=== PATIENT | female | born 1955 | race Caucasian/White ===

== ENCOUNTER 2019-03-18 01:10 | Outpatient (CLI) | payer OTHER, SELFPAY ==
--- NOTE | 2019-03-18 06:20 | DI.RAD_ITS ---
SYMPTOM/DIAGNOSIS: ELBOW DEFORMITY, M21.929 RIGHT ELBOW: Three views. No bone or joint abnormality is identified. The soft tissues are unremarkable. If there is concern for internal derangement, an MRI may be considered for further evaluation. IMPRESSION: Negative right elbow.
--- NOTE | 2019-03-18 15:30 | DI.MAMMO_ITS ---
SYMPTOM/DIAGNOSIS: SCREENING, Z12.31 MAMMOGRAMS: Mammograms were interpreted according to the usual protocol including computer analysis with CAD system, tomosynthesis and C view imaging. Comparison is made with prior examinations. Breast density, Category B. No suspicious masses or microcalcifications are seen. There is no definite evidence of malignancy. IMPRESSION: Negative mammogram. Routine screening is recommended. Category 1. MQSA ASSESSMENT OF FINDINGS: Negative. Category 1. Patient will receive a letter notifying them of these results. BI-RADS category B. There are scattered areas of fibroglandular density.
== END 2019-03-18 01:30 ==
PROVIDERS: PCP Family Medicine; Visit Provider Family Medicine
DX: M21.921 Unspecified acquired deformity of right upper arm (principal); Z12.31 Encounter for screening mammogram for malignant neoplasm of breast
CPT/HCPCS: 77063; 77067; 73080

== ENCOUNTER 2020-09-29 16:21 | Outpatient (REF) | payer OTHER, SELFPAY ==
--- NOTE | 2020-09-29 15:30 | PAPFT_PTH ---
PATIENT: Sonia Bolanos LOC: [facility] U#:[id number] AGE/SX: 64/F ROOM: RE09/29/[address]: Helen Garces MD, DC : 1955 BED: DIS: 09/29/2020 SPEC #: [id number] RECD: 09/30/20 12:52 STATUS: IRINEO REQ #: [id number] BLANCA: 09/29/20 15:[address]: Helen Garces DEPT: [facility] Cytology RECD BY: Parisa Mosley Tissues: 1 - CX/ENDOCX FOR PAP SMEARS Procedures: PAP THIN PREP/UVM Screening HPV DNA PROBE Comments: [id number] ([facility])
== END 2020-09-29 16:41 ==
LOC: LBN 16:21
PROVIDERS: PCP Family Medicine; Visit Provider Family Medicine
DX: Z87.42 Personal history of other diseases of the female genital tract (principal); Z12.4 Encounter for screening for malignant neoplasm of cervix; Z11.51 Encounter for screening for human papillomavirus (HPV)
CPT/HCPCS: 88142; 87624

== ENCOUNTER 2020-11-03 00:08 | Outpatient (CLI) | payer OTHER, SELFPAY ==
--- NOTE | 2020-11-03 07:00 | DI.US_ITS ---
EXAM: US PELVIS TRANSVAGINAL CLINICAL HISTORY: CERVICAL POLYP,N84.1,MYASTHENIA GRAVIS,. TECHNIQUE: Transabdominal and transvaginal pelvic ultrasound was performed using standard protocol. COMPARISON: US PELVIS TRANSVAG from 09/13/2017 FINDINGS: KIDNEYS: Kidneys are symmetric in size. No evidence of renal calculi. No evidence of hydronephrosis. No renal mass or cyst identified. UTERUS: Position: Anteverted. Size: 9.8 long by 3.8 AP by 6.5 transverse cm Endometrium: 0.4 cm. Normal for patient's menstrual status. Myometrium: Several hypoechoic masses which have a myometrial location sonographically. The largest is in the fundus and measures 2.6 x 3.9 x 3.8 cm. Cervix: Sonographically unremarkable. No definite evidence of a cervical mass. OVARIES: Right: 3.8 x 3 x 2.7 cm Cyst or mass: 3.8 cm simple cyst. Left: 4.6 x 4.1 x 4.2 cm Cyst or mass: 4.6 cm simple cyst. DOPPLER: Color: Symmetric and uniform flow to both ovaries. No hyperemia. CUL-DE-SAC: Free fluid: None. Other: None. IMPRESSION: 1. Normal sonographic appearance of the kidneys. 2. Enlarged fibroid uterus. No definite evidence of a cervical mass sonographically. 3. Bilateral simple ovarian cysts. The largest is on the left ovary and measures 4.6 cm. The cysts have shown interval increase in size compared to the pelvic ultrasound from 09/13/2017 in this postmen opausal patient. Gynecologic consult is recommended. DATA REPOSITORY:
--- NOTE | 2020-11-03 07:00 | DI.MAMMO_ITS ---
EXAM: MG MAMMO SCREENING CLINICAL HISTORY: screening,Z12.39,ENCOUNTER FOR GENERAL MEDICAL EXAM,Z00.00 TECHNIQUE: Bilateral full field digital CC and MLO mammographic images were obtained with 3D tomosyn thesis and utilizing computer aided detection (CAD). COMPARISON: Available for comparison. FINDINGS: Masses/Architectural Distortion: None seen. Microcalcifications: No suspicious pleomorphic-type are seen. Skin Thickening/Nipple Retraction: None. IMPRESSION: 1. No significant interval change with no specific features of malignancy noted. 2. Unless there is more urgent need, screening mammography is recommended, as per [employer] [place] [employer] guidelines. BI-RADS Category 1 - Negative Breast Density - Category B - Scattered areas of fibroglandular density Breast density category C or D implies that the patient has dense breast tissue. Dense breast tissue is very common and is not abnormal but dense breast tissue can make it harder to find cancer on a ma mmogram. Also, dense breast tissue may increase their breast cancer risk. This information about the result of the mammogram report was provided to the patient to raise their awareness. Use this report when you speak with the patient about their risks for breast cancer, which includes their family hist ory. At that time, you may recommend for more screening tests (Ultrasound or MRI) as they might be us eful based on their risk. A negative radiographic report should not delay biopsy if a dominant or clinically suspicious mass is present. Up to ten percent of cancers are not identified on mammography. A negative report may reinforce clinical impression. Adenosis and dense breasts may obscure an underlying neoplasm. False positive reports average 6 to 10%. Patient will receive a letter notifying them of these results.
== END 2020-11-03 00:28 ==
PROVIDERS: PCP Family Medicine; Visit Provider Family Medicine
DX: Z12.31 Encounter for screening mammogram for malignant neoplasm of breast (principal); Z00.00 Encounter for general adult medical examination without abnormal findings; N83.292 Other ovarian cyst, left side; N83.291 Other ovarian cyst, right side; D25.9 Leiomyoma of uterus, unspecified; N84.1 Polyp of cervix uteri; G70.00 Myasthenia gravis without (acute) exacerbation
CPT/HCPCS: 77063; 77067; 76830; 76856

== ENCOUNTER 2020-11-03 01:58 | Outpatient (CLI) | payer OTHER, SELFPAY ==
[2020-11-03 08:46] LABS: ALT 26 U/L (14-59); AST 19 U/L (15-37); Albumin 3.7 g/dL (3.4-5.0); Alkaline Phosphatase 98 U/L (46-116); Anion Gap 8.2 mmol/L (3-11); BUN 15 mg/dL (7-18); Bilirubin, Total 0.2 mg/dL (0.2-1.0); CO2 28.8 mmol/L (21.0-32.0); CREATININE 0.88 mg/dL (0.55-1.02); Calcium 8.7 mg/dL (8.5-10.1); Calculated LDL 139 mg/dL (<100); Chloride 103 mmol/L (98-107); Cholesterol 232 mg/dL (<200); Glucose 89 mg/dL (74-106); HDL Cholesterol 68 mg/dL (40-60); Sodium 140 mmol/L (136-145); TSH (W/Ref FT4) 1.88 uIU/mL (0.36-3.74); Total Protein 7.8 g/dL (6.4-8.2); Triglyceride 127 mg/dL (<150)
== END 2020-11-03 02:18 ==
PROVIDERS: PCP Family Medicine; Visit Provider Family Medicine
DX: Z00.00 Encounter for general adult medical examination without abnormal findings (principal); E55.9 Vitamin D deficiency, unspecified; E78.89 Other lipoprotein metabolism disorders; Z95.0 Presence of cardiac pacemaker
CPT/HCPCS: 36415; 80053; 80061; 82306; 84443

== ENCOUNTER 2020-11-24 15:45 | Outpatient (CLI) | payer OTHER, SELFPAY ==
[2020-11-25 17:40] LABS: CEA <0.5 ng/mL (See Note)
[2020-11-26 09:49] LABS: CA 125 <3 U/mL (<30)
[2020-11-28 10:17] LABS: CA 19-9 11 U/mL (<35)
== END 2020-11-24 16:05 ==
PROVIDERS: PCP Family Medicine; Visit Provider Obstetrics & Gynecology
DX: N83.8 Other noninflammatory disorders of ovary, fallopian tube and broad ligament (principal)
CPT/HCPCS: 36415; 86304; 82378; 86301

== ENCOUNTER 2021-02-19 02:39 | Emergency (ER) | payer OTHER, SELFPAY ==
--- NOTE | 2021-02-19 02:45 | W.ED.GENAD ---
Discharge Plan Disposition Patient Disposition: HOME Condition: Good Discharge Details Clinical Impression: Left ureteral calculus, Renal colic on left side Primary Care Provider: Helen Garces ED Provider: Antonio Durant Home Meds and New Rx's Prescriptions: Continued cholecalciferol (vitamin D3) 50 mcg (2,000 unit) capsule 50 mcg PO DAILY RF: 0 pyridostigmine bromide [Mestinon Timespan] 180 mg tablet extended release 180 mg PO BID Qty: 180 RF: 12 Discharge Instructions Instructions: Hydrocodone/Acetaminophen (By mouth), Renal Colic (ED) Additional Instructions: As we discussed you have a 3 mm stone which should be able to pass on its own. Strain your urine so you know when stone has passed. Try alternating ibuprofen with acetaminophen for pain control but if necessary you may take the hydrocodone with acetaminophen. May follow-up with primary care but will refer to urology in case symptoms persist and stone does not pass on its own. Return to ED if you develop fever, uncontrolled pain, uncontrolled vomiting. Referrals: Hansel Mg MD [[facility] STAFF PHYSICIAN] - Helen Garces [place], [place] [Primary Care Provider] - Medical Decision Making Patient presenting with left flank pain and developed hematuria since being in the ED. No previous history of kidney stone but given presentation this is most likely diagnosis. IV established and fluid, ondansetron, ketorolac ordered. Laboratory studies sent. CT scan ordered. Patient with relief of symptoms with IV medications. White count is normal. Kidney function is normal. Urinalysis with blood but negative nitrites and leukocytes. Culture pending. CT scan shows a 3 mm proximal ureteral stone with mild dilatation proximally. Also noted to have large left ovarian cyst which patient is aware of. Discussed stone size and likelihood of passage on its own. Pain starting to return so we will give oral Tylenol here. Patient is driving so will provide [place] to go pack in case need further pain control once home. Would prefer patient to alternate ibuprofen with acetaminophen and use [place] only if necessary. Did discuss use of narcotic medication. Given the small size of the stone elected not to use Flomax. Will have patient strain her urine. May follow-up with primary care but will refer to urology in case there are problems with nonpassage. Patient to return to ED for fever, uncontrolled pain, uncontrolled vomiting. Lab Data Lab results reviewed: Yes I reviewed the patient's lab results. HPI General Mode of arrival: ambulatory. Date/Time Provider Initiated Documentation: 02/19/21 02:45. Limitations to Documentation: no limitations. Information obtained by: patient, RN notes reviewed and old records reviewed. HPI Narrative: Patient presents to the ED with left flank pain. Patient first noticed pain yesterday but resolved. Returned tonight and woke her up at about 1:30. Is a constant colicky pain in the left flank that has associated nausea and vomiting. Has never had this previously. Denies any urinary symptoms but noted blood in the urine here. Has not had any previously. Denies having back pain. Denies chest pain, shortness of breath, fever, cough. Was very uncomfortable at home and finally came in for evaluation. Related Data Home Medications Medication Instructions Recorded Confirmed cholecalciferol (vitamin D3) 50 50 mcg PO DAILY 09/29/20 02/19/21 mcg (2,000 unit) capsule pyridostigmine bromide 180 mg 180 mg PO BID #180 tab 09/29/20 02/19/21 tablet,extended release Previous Rx's Medication Instructions Recorded pyridostigmine bromide 180 mg 180 mg PO BID #180 tab 09/29/20 tablet,extended release Allergies Allergy/AdvReac Type Severity Reaction Status Date / Time No Known Allergies Allergy Verified 02/19/21 02:59 Review of Systems Narrative: As documented in HPI otherwise negative as below. Const: no fever, chills, weakness Resp: no cough, SOB, pleuritic pain CV: no CP, diaphoresis, edema, syncope GI: no diarrhea Neuro: no headache, numbness, focal weakness, confusion [facility] Medical History Fibroid uterus 09/2017 Pelvic u/s fundal, anterior and posterior fibroid. 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 Ovarian cyst, bilateral R ovary:[id number] simple appearance. L ovary [id number] simple appearance. Pacemaker (02/13/17) Postmenopausal bleeding 2016. Pelvic u/s: 4.3mm ES. EMBx: Rotator cuff syndrome 08/29/14 MRI;LEFT PARTIAL THICKNESS TEAR. Shoulder impingement [facility] 08/29/14; LEFT Spondylolisthesis Vitamin D deficiency disease Surgical History Colonoscopy - IV Sedation (04/11/17) 2007-nl Ligation of fallopian tube Pacemaker 10/15/16-[facility] [place] PROCEDURES EYE ENUC/IMPLAN/MUSC ATT ? R OR L; 1979 EXTROPIAN; B/L LATERAL RECTUS RELEASE Family History (Updated 09/30/20 @ 14:12 by Esteban Duffy) Mother Essential hypertension Heart disease ASHD Hyperlipidemia Father , 52 Neoplasm liver Liver cancer Kidney malignancy Maternal Grandfather Heart disease Social History Smoking/Tobacco Use Status: Never Second Hand Exposure: Yes Smoking risk assessment performed?: Yes Alcohol Intake: never Drug use: Never Substance use type: does not use Caregiver/Support person: No Household members: spouse Housing: house Communication Needs: Corrective Lenses Do you need help understanding health information?: Never Pets and animals: No Sexually active: No Do you think of yourself as: straight/heterosexual Current gender identity: female What is your relationship status?: How often do you talk on the phone with friends or family?: once per week How often do you get together with friends or relatives?: once per week How often do you attend holiness or advent services?: decline to answer Do you belong to any clubs or organized social groups?: no Panel score (0-1 are the most socially isolated patients): 1 What type of physical activity do you participate in: decline to answer Duration: 30-45 minutes/day Frequency: 5-6 times per week Piedad/Mu-Ism: Taoist Special piedad needs: No Seatbelt use: always Helmet use: No Drive intox 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 Normal facial exam. Eyes: Normal conjunctiva and sclera. Neck: Supple. Trachea midline. Lungs: Normal respiratory effort. Cor: RRR Good radial pulses. GI: Soft. NT/ND. No guarding or rebound. Back: No CVAT Neuro: A+O x 3. Normal speech, mentation, gait. Cranial nerves II - XII grossly intact. No gross motor or sensory deficit. Ext: No C/C/E. Skin: Warm and dry without rash.
[2021-02-19 02:50] VITALS: BP 137/64; PULSE 63; RESP 20; TEMP 36.7; O2SAT 99
[2021-02-19] MEDS: Lactated Ringers 1,000 ML 1000 ML IV (03:15)
[2021-02-19] MEDS: Ketorolac 15 MG/ML VIAL IVP (03:15)
[2021-02-19] MEDS: Ondansetron 4 MG/2 ML VIAL IVP (03:15)
[2021-02-19 03:17] LABS: Bilirubin Small (Negative); Blood Large (Negative); Clarity Cloudy (Clear); Glucose Negative (Negative); Ketones Negative (Negative); Leukocyte Esterase Negative (Negative); Nitrite Negative (Negative); Specific Gravity >= 1.030 (1.005-1.025); Urobilinogen 0.2 EU/dL (Up TO 0.2); pH 5.5 (5-8)
[2021-02-19 03:25] LABS: Anion Gap 6.1 mmol/L (3-11); BUN 18 mg/dL (7-18); CO2 30.9 mmol/L (21.0-32.0); Calcium 9.3 mg/dL (8.5-10.1); Chloride 103 mmol/L (98-107); Estimated GFR 55.82 (mL/min/1.73m2); Glucose 121 mg/dL (74-106); Potassium 3.1 mmol/L (3.5-5.1); Sodium 140 mmol/L (136-145)
[2021-02-19 03:28] LABS: Abs Immature Grans 0.03 10^3/uL (0.0-0.06); Absolute Basophil Count 0.04 10^3/uL (0.0-0.2); Absolute Eosinophil Count 0.21 10^3/uL (0.0-0.7); Absolute Lymphocyte Count 2.62 10^3/uL (1.2-3.4); Absolute Monocyte Count 0.51 10^3/uL (0.1-0.8); Absolute Neutrophil Count 3.92 10^3/uL (1.2-6.7); Basophils % 0.5; Eosinophils % 2.9; HGB 13.2 g/dL (11.2-15.7); Immature Grans % 0.4; Lymphocytes % 35.7; MCH 27.3 pg (27.0-33.0); MCHC 31.4 % (32.0-36.0); MPV 9.4 fL (8.0-11.0); Neutrophils % 53.5; Nucleated RBC 0 %; Platelet Count 283 10^3/uL (130-400); RBC 4.83 10^6/uL (3.93-5.22); RDW 14.4 % (11.7-14.6); RDW-SD 45.5 fL; WBC 7.33 10^3/uL (4.4-10.8)
[2021-02-19 03:28] LABS: C & S Indicated? Yes; RBC >50 HPF (0-2)
--- NOTE | 2021-02-19 03:35 | DI.CT_ITS ---
EXAM: CT RENAL COLIC WO CLINICAL HISTORY: left flank pain. TECHNIQUE: Imaging Protocol: Axial computed tomography images with coronal and sagittal reformatted images were created and reviewed. COMPARISON: US PELVIS TRANSVAG from 09/13/2017 FINDINGS: ABDOMEN: Lung Bases: Atelectasis or scarring in the lung bases. Liver: Diffuse decreased attenuation of the liver consistent with fatty infiltration. The liver robbi ures 18 cm in length. No measurable mass. Gallbladder and biliary tract: No radiodense calculus or biliary ductal dilation. Pancreas: Normal density, no abnormal calcifications or inflammatory process. Spleen: Normal. Kidneys: Normal size, contour and axis.There is a 4 mm stone at the left UPJ causing [id number] hydronephrosis. There are nonobstructing stones in the left kidney. No masses seen. Adrenal glands: No mass is seen. Lymph nodes: Within normal limits. Abdominal Aorta: Abdominal portion non-dilated. PELVIS: Bladder:Incompletely distended. No gross abnormality. Bowel: No obstruction or bowel wall thickening. Appendix is unremarkable. Peritoneal cavity: No ascites, collection or mesenteric inflammatory response. No free air. Reproductive organs: There is a lobulated enlarged uterus likely reflecting fibroids. There is a 6.1 x 4.3 cm left adnexal cyst previous ultrasound from 09/13/2017 showed a 3.9 cm left ovarian cyst. Th ere is a 2.3 x 2.6 cm right adnexal cyst likely ovarian. On the prior ultrasound there was a 3.0 cm cyst present. Bones: There is L5 spondylolysis and grade 1 spondylolisthesis of L5 on S1. Soft Tissues: Within normal limits. IMPRESSION: 1. 4 mm left UPJ stone causing wujc-sg-rvercgol hydronephrosis. Left nephrolithiasis. 2. Leiomyomatous uterus. 3. Bilateral adnexal cyst likely ovarian. 4. Fatty infiltration of the liver. Mild hepatomegaly. RADIATION DOSE DELIVERED: 921.87mGy.cm Total DLP DATA REPOSITORY: All CT scans at this facility are submitted to the National Radiology Data Registry (NRDR) Dose Index Registry (DIR) with the [employer] (ACR). RADIATION OPTIMIZATION: All CT scans at this facility use at least one of these dose optimization te chniques: automated exposure control; mA and/or kV adjustment per patient size (includes targeted exa ms where dose is matched to clinical indication); or iterative reconstruction.
--- NOTE | 2021-02-19 04:22 | DI.VRAD_ITS ---
PROCEDURE INFORMATION: Exam: CT Abdomen And Pelvis Without Contrast Exam date and time: 02/19/2021 3:08 AM Age: 65 years old Clinical indication: Abdominal pain; Flank; Left; Prior surgery; Surgery date: 6+ months; Surgery type: Thymus, pacemaker; Additional info: Nausea/vomiting, intermittent left flank pain x 24 hours. TECHNIQUE: Imaging protocol: Computed tomography of the abdomen and pelvis without contrast. Radiation optimization: All CT scans at this facility use at least one of these dose optimization techniques: automated exposure control; mA and/or kV adjustment per patient size (includes targeted exams where dose is matched to clinical indication); or iterative reconstruction. COMPARISON: US PELVIS TRANSVAGINAL 11/03/2020 8:05 AM FINDINGS: Lungs: Mild streaky atelectasis at the lung bases. Mediastinal space: Small hiatal hernia. Liver: Diffuse fatty infiltration of the liver. Gallbladder and bile ducts: Gallbladder partially distended. Layering intermediate density in the gallbladder, probably incompletely calcified stones, sludge, or artifact. No biliary dilatation. Pancreas: Grossly unremarkable unenhanced pancreas. Spleen: Grossly unremarkable unenhanced spleen. Adrenal glands: Normal appearing adrenal glands. Kidneys and ureters: 3 mm stone in the proximal left ureter with upstream ureterectasis and mild hydronephrosis in keeping with obstructive uropathy. No right-sided urinary tract stones or hydronephrosis. Stomach and bowel: No oral contrast. Stomach partially decompressed. No small bowel dilatation to suggest obstruction. Descending and sigmoid colon completely evacuated and collapsed with apparent mural thickening. Artifact of incomplete distention suspected. Acute segmental colitis not excluded. Appendix: Appendix partially obscured but normal in caliber and appearance through its visualized portion. Intraperitoneal space: No gross ascites or free air. Vasculature: Normal caliber abdominal aorta. Lymph nodes: No pathologically enlarged mesenteric, retroperitoneal, or pelvic sidewall lymph nodes. Urinary bladder: Urinary bladder collapsed and not well evaluated but grossly unremarkable, as seen. Reproductive: Anteverted leiomyomatous uterus. 5.2 cm x 4.9 cm left ovarian cyst. Normal-sized right ovary, partially obscured. Bones/joints: Bilateral spondylolysis at L5 with grade 1 anterolisthesis of L5 on S1, severe L5-S1 discogenic degeneration, and severe bilateral L5-S1 foraminal narrowing with partial flattening of the L5 nerve roots bilaterally. Soft tissues: Diastasis recti. No significant ventral or inguinal hernia demonstrated. IMPRESSION: 1. 3 mm obstructing proximal left ureteral calculus. 2. Fatty infiltration of the liver. 3. Leiomyomatous uterus. 4. 5.2 cm x 4.9 cm left ovarian cyst. 5. Bilateral spondylolysis at L5 with grade 1 anterolisthesis of L5 on S1, severe L5-S1 discogenic degeneration, and severe bilateral L5-S1 foraminal narrowing with partial flattening of the L5 nerve roots bilaterally. Dictated and Authenticated by: Tigre Alexandra MD. Ordering:MICHELLE Alvarez MD
[2021-02-19] MEDS: Acetaminophen 325 MG TAB 650 MG PO (04:41)
[2021-02-19 04:42] VITALS: BP 137/64; PULSE 63; RESP 20; TEMP 36.7; O2SAT 99
== END 2021-02-19 04:55 | disposition home or self-care (01) ==
PROVIDERS: Emergency Provider Emergency Medicine; PCP Family Medicine
DX: N20.1 Calculus of ureter (principal)
CPT/HCPCS: 80048; 96361; 96374; 96375; 99284; 74176; 81003; 81015; 85025; 87086; 99283; J1885; J2405

== ENCOUNTER 2021-03-04 16:05 | Outpatient (REF) | payer OTHER, SELFPAY | END 2021-03-04 16:06 | disposition home or self-care (01) | LOC: LBN 16:05 | PROVIDERS: PCP Family Medicine; Visit Provider Obstetrics & Gynecology Gynecologic Oncology | DX: R30.0 Dysuria (principal) | CPT/HCPCS: 87086 ==

== ENCOUNTER 2021-03-12 14:05 | Outpatient (REF) | payer OTHER, SELFPAY | END 2021-03-12 14:06 | disposition home or self-care (01) | LOC: LBN 14:05 | PROVIDERS: PCP Family Medicine; Visit Provider Obstetrics & Gynecology Gynecologic Oncology | DX: R30.0 Dysuria (principal) | CPT/HCPCS: 87086 ==

== ENCOUNTER 2021-07-07 10:14 | Outpatient (REF) | payer OTHER, SELFPAY ==
[2021-07-07 11:46] LABS: C Diff PCR Negative (Negative)
[2021-07-07 22:16] LABS: Campylobacter PCR Negative (Negative); Shiga Toxin PCR Negative (Negative); Shigella/Enteroinvasive Ecoli Negative (Negative)
[2021-07-08 09:39] LABS: Salmonella PCR Positive (Negative)
== END 2021-07-07 10:15 | disposition home or self-care (01) ==
LOC: LBN 10:14
PROVIDERS: PCP Family Medicine; Visit Provider Family Medicine
DX: R19.7 Diarrhea, unspecified (principal)
CPT/HCPCS: 87329; 87493; 87505

== ENCOUNTER 2021-07-08 08:11 | Emergency (ER) | payer OTHER, SELFPAY ==
[2021-07-08] VITALS (23 sets, daily range): BP systolic 119–139; BP diastolic 50–78; PULSE 63–74; RESP 13–28; TEMP 36.2–36.5; O2SAT 93–100
--- NOTE | 2021-07-08 08:45 | ED.GENADUL_ITS ---
Discharge Plan Disposition Patient Disposition: HOME Condition: Stable Discharge Details Clinical Impression: Salmonella enteritis, Acute dehydration, Hypokalemia Primary Care Provider: Helen Garces ED Provider: Inder Forrest Home Meds and New Rx's Prescriptions: New ciprofloxacin HCl 500 mg tablet 500 mg PO BID Qty: 10 RF: 0 Continued cholecalciferol (vitamin D3) 50 mcg (2,000 unit) capsule 50 mcg PO DAILY RF: 0 pyridostigmine bromide [Mestinon Timespan] 180 mg tablet extended release 180 mg PO BID Qty: 180 RF: 12 Discharge Instructions Instructions: Dehydration (ED), Hypokalemia (ED), Salmonella Infection (ED) Additional Instructions: Please take full course of antibiotic as prescribed. Drink small amounts of clear fluid frequently in order to stay hydrated. Any fluid volume loss in diarrhea should be replaced with oral rehydration. Please be sure to wash your hands frequently and use a separate bathroom from other family members. Please contact your primary care physician to arrange follow-up. Return to the ER for any worsening or new concerning symptoms. Referrals: Helen Garces MD, [place] [Primary Care Provider] - Discharge Data Discharge Date/Time-TO BE ENTERED AT DEPARTURE: 07/08/21 11:08 Medical Decision Making 845??65-year-old female with history of myasthenia gravis here with loose stool for the past 6 days, also with intermittent abdominal cramping and nausea vomiting. Patient mildly dehydrated. Abdominal exam benign. Patient hemodynamically stable. Stool cultures collected yesterday and still pending. C. difficile yesterday negative. Plan to assess for electrolyte abnormalities and give IV fluid bolus for rehydration. 1038 --labs reviewed, stool culture from yesterday positive for Salmonella. Patient has mild hypokalemia with potassium of 3.2. Given age and severity of disease I will initiate treatment with ciprofloxacin. Ciprofloxacin 400 mg IV to be administered here. I reviewed risk benefit with patient and she provided informed consent to treat with cipro. I will give potassium chloride 40 mEq p.o. -- Patient reassessed after IVF. Feeling better. Tolerating PO intake. Usual and customary discharge instructions reviewed with patient. HPI General Mode of arrival: ambulatory . Date/Time Provider Initiated Documentation: 07/08/21 08:12 . Limitations to Documentation: no limitations . Information obtained by: patient . HPI Narrative: 65-year-old female with history of myasthenia gravis, here with chief complaint of diarrhea. Patient notes 6 days of loose brown stool. She notes she has had frequent bowel movements. She has intermittent abdominal cramping and intermittent nausea and vomiting. She currently has no abdominal pain. No bright red blood per rectum. No fever. No recent raw or undercooked foods. No known sick contacts. Patient had a phone visit with PCP yesterday and had stool cultures that were collected yesterday. Patient has had screening colonoscopies and notes no concerning findings in the past. Related Data Home Medications Medication Instructions Recorded Confirmed cholecalciferol (vitamin D3) 50 50 mcg PO DAILY 09/29/20 07/08/21 mcg (2,000 unit) capsule pyridostigmine bromide 180 mg 180 mg PO BID #180 tab 09/29/20 07/08/21 tablet,extended release ciprofloxacin HCl 500 mg PO BID #10 tab 07/08/21 Previous Rx's Medication Instructions Recorded pyridostigmine bromide 180 mg 180 mg PO BID #180 tab 09/29/20 tablet,extended release ciprofloxacin HCl 500 mg PO BID #10 tab 07/08/21 Allergies Allergy/AdvReac Type Severity Reaction Status Date / Time No Known Allergies Allergy Verified 07/08/21 08:24 General Stated Complaint: Nausea/Vomit/Diar ANABELLE: 3 Review of Systems All systems reviewed & are unremarkable except as noted in HPI and below Constitutional Constitutional: Reports fatigue and Denies fever(s) Cardiovascular Cardiovascular: Denies chest pain Respiratory Respiratory: Denies cough Gastrointestinal Gastrointestinal: Reports as per HPI Genitourinary Genitourinary: Denies dysuria Endocrine Endocrine: Reports fatigue [facility] Medical History Fibroid uterus 09/2017 Pelvic u/s fundal, anterior and posterior fibroid. 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 Ovarian cyst, bilateral R ovary:[id number] simple appearance. L ovary [id number] simple appearance. Pacemaker (02/13/17) Postmenopausal bleeding 2016. Pelvic u/s: 4.3mm ES. EMBx: Rotator cuff syndrome 08/29/14 MRI;LEFT PARTIAL THICKNESS TEAR. Shoulder impingement [facility] 08/29/14; LEFT Spondylolisthesis Vitamin D deficiency disease Surgical History Colonoscopy - IV Sedation (04/11/17) 2007-nl Ligation of fallopian tube [facility]emaker 10/15/[facility] [place]/IMPLAN/MUSC ATT ? R OR L; 1979 EXTROPIAN; B/L LATERAL RECTUS RELEASE Family History Mother Essential hypertension Heart disease ASHD Hyperlipidemia Father , 52 Neoplasm liver Liver cancer Kidney malignancy Maternal Grandfather Heart disease Social History Smoking/Tobacco Use Status: Never Second Hand Exposure: Yes Smoking risk assessment performed?: Yes Alcohol Intake: never Drug use: Never Substance use type: does not use Caregiver/Support person: No Household members: spouse Housing: house Communication Needs: Corrective Lenses Do you need help understanding health information?: Never Pets and animals: No Sexually active: No Do you think of yourself as: straight/heterosexual Current gender identity: female What is your relationship status?: How often do you talk on the phone with friends or family?: once per week How often do you get together with friends or relatives?: once per week How often do you attend mormon or confucianism services?: decline to answer Do you belong to any clubs or organized social groups?: no Panel score (0-1 are the most socially isolated patients): 1 What type of physical activity do you participate in: decline to answer Duration: 30-45 minutes/day Frequency: 5-6 times per week Piedad/Christianity: Confucianist Special piedad needs: No Seatbelt use: always Helmet use: No Drive intox 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: No Do you feel safe at home: Yes Do you feel safe in your relationship?: Yes Victim of physical abuse: No Victim of emotional abuse: No Victim of sexual abuse: No Would you like helpful sources: No Exam Const General: cooperative and no acute distress HENMT Head: normocephalic and atraumatic Mouth: mucous membranes dry Eyes Conjunctivae: normal conjunctivae Sclera: normal sclerae Neck Neck: trachea midline and supple Resp Auscultation: clear to auscultation bilaterally, no rales, no rhonchi and no wheezes Cardio Rate: regular rate and not tachycardic Rhythm: regular rhythm GI Palpation: soft, not firm, no guarding, no masses, not rigid and nontender Skin General skin exam: no rashes or lesions noted Neuro General: patient alert, patient awake, patient oriented x3 and tone normal Extrem General: no edema Psych Appearance: grossly normal Mental Status: mental status grossly normal Speech and Movement: speech and movement normal Course Vital Signs Vital signs: Vital Signs Temperature 36.2 C L 07/08/21 08:18 Pulse 74 07/08/21 08:18 Respiratory Rate 16 07/08/21 08:18 Blood Pressure 123/68 07/08/21 08:18 Pulse Oximetry 96 07/08/21 08:18 Temperature 36.2 C L 07/08/21 08:18 Temperature Source Temporal Artery Scan 07/08/21 08:18 Pulse 74 07/08/21 08:18 Respiratory Rate 16 07/08/21 08:18 Respiratory Effort Non-Labored 07/08/21 08:23 Blood Pressure 123/68 07/08/21 08:18 Blood Pressure Position Supine 07/08/21 08:18 Pulse Oximetry 96 07/08/21 08:18 Oxygen Delivery Method Room Air 07/08/21 08:18 Oxygen Flow Rate 0 07/08/21 08:18 Pain Level 0 07/08/21 08:18
[2021-07-08] MEDS: Lactated Ringers 1,000 ML 1000 ML IV (09:39)
[2021-07-08] MEDS: CIPROFLOXACIN 400 MG/200 ML BAG 200 MG IVPB (09:39)
[2021-07-08 09:48] LABS: Abs Immature Grans 0.02 10^3/uL (0.0-0.06); Absolute Basophil Count 0.04 10^3/uL (0.0-0.2); Absolute Eosinophil Count 0.12 10^3/uL (0.0-0.7); Absolute Lymphocyte Count 1.54 10^3/uL (1.2-3.4); Absolute Monocyte Count 0.82 10^3/uL (0.1-0.8); Absolute Neutrophil Count 2.75 10^3/uL (1.2-6.7); Basophils % 0.8; Eosinophils % 2.3; HCT 42.9 % (36.0-46.0); HGB 13.8 g/dL (11.2-15.7); Immature Grans % 0.4; Lymphocytes % 29.1; MCH 27.1 pg (27.0-33.0); MCHC 32.2 % (32.0-36.0); MCV 84.1 fL (80-95); MPV 9.5 fL (8.0-11.0); Monocytes % 15.5; Neutrophils % 51.9; Nucleated RBC 0 %; Platelet Count 273 10^3/uL (130-400); RDW 13.5 % (11.7-14.6); RDW-SD 41.6 fL; WBC 5.29 10^3/uL (4.4-10.8)
[2021-07-08 10:01] LABS: ALT 28 U/L (14-59); AST 20 U/L (15-37); Albumin 3.6 g/dL (3.4-5.0); Alkaline Phosphatase 92 U/L (46-116); Anion Gap 8.6 mmol/L (3-11); BUN 9 mg/dL (7-18); Bilirubin, Total 0.2 mg/dL (0.2-1.0); CO2 27.4 mmol/L (21.0-32.0); CREATININE 0.9 mg/dL (0.55-1.02); Calcium 9.2 mg/dL (8.5-10.1); Chloride 100 mmol/L (98-107); Glucose 98 mg/dL (74-106); Lipase 404 U/L (73-393); Potassium 3.2 mmol/L (3.5-5.1); Sodium 136 mmol/L (136-145); Total Protein 8.5 g/dL (6.4-8.2)
[2021-07-08 10:02] LABS: Magnesium 1.9 mg/dL (1.8-2.4)
[2021-07-08] MEDS: Potassium Chloride 20 MEQ TABCR 40 MEQ PO (10:47)
== END 2021-07-08 11:08 | disposition home or self-care (01) ==
PROVIDERS: Emergency Provider Student in an Organized Health Care Education/Training Program; PCP Family Medicine
DX: A02.0 Salmonella enteritis (principal); E86.0 Dehydration; E87.6 Hypokalemia
CPT/HCPCS: 36415; 80053; 83690; 96361; 96365; 99284; 83735; 85025; J0744

== ENCOUNTER 2021-08-27 09:32 | Outpatient (REF) | payer OTHER, SELFPAY ==
[2021-08-27 11:20] LABS: Bilirubin Negative (Negative); Blood Negative (Negative); Clarity Clear (Clear); Glucose Negative (Negative); Ketones Negative (Negative); Leukocyte Esterase Negative (Negative); Nitrite Negative (Negative); Urobilinogen 0.2 EU/dL (Up TO 0.2)
== END 2021-08-27 09:33 | disposition home or self-care (01) ==
LOC: LBN 09:32
PROVIDERS: PCP Family Medicine; Visit Provider Family Medicine
DX: R35.0 Frequency of micturition (principal)
CPT/HCPCS: 81003

== ENCOUNTER 2022-12-13 01:25 | Outpatient (CLI) | payer MEDICARE, SELFPAY ==
--- NOTE | 2022-12-13 08:02 | DI.MAMMO_ITS ---
Exam(s) MAMMO SCREENING EXAM: MAMMO SCREENING CLINICAL HISTORY: screening,z12.39 TECHNIQUE: Bilateral full field digital CC and MLO mammographic images were obtained with 3D tomosyn thesis and utilizing computer aided detection (CAD). COMPARISON: Available for comparison. FINDINGS: Masses/Architectural Distortion: None seen. Microcalcifications: No suspicious pleomorphic-type are seen. Skin Thickening/Nipple Retraction: None. IMPRESSION: 1. No significant interval change with no specific features of malignancy noted. 2. Unless there is more urgent need, screening mammography is recommended, as per [employer] guidelines. BI-RADS Category 1 - Negative Breast Density - Category B - Scattered areas of fibroglandular density Breast density category C or D implies that the patient has dense breast tissue. Dense breast tissue is very common and is not abnormal but dense breast tissue can make it harder to find cancer on a ma mmogram. Also, dense breast tissue may increase their breast cancer risk. This information about the result of the mammogram report was provided to the patient to raise their awareness. Use this report when you speak with the patient about their risks for breast cancer, which includes their family hist ory. At that time, you may recommend for more screening tests (Ultrasound or MRI) as they might be us eful based on their risk. A negative radiographic report should not delay biopsy if a dominant or clinically suspicious mass is present. Up to ten percent of cancers are not identified on mammography. A negative report may reinforce clinical impression. Adenosis and dense breasts may obscure an underlying neoplasm. False positive reports average 6 to 10%. Patient will receive a letter notifying them of these results.
== END 2022-12-13 01:45 ==
LOC: DI 01:25
PROVIDERS: PCP Family Medicine; Visit Provider Family Medicine
DX: Z12.31 Encounter for screening mammogram for malignant neoplasm of breast (principal)
CPT/HCPCS: 77063; 77067

== ENCOUNTER 2023-04-18 11:13 | Outpatient (CLI) | payer MEDICARE, SELFPAY ==
--- NOTE | 2023-04-18 08:45 | DI.RAD_ITS ---
Exam(s) XR CHEST 2V PA LATERAL EXAM: XR CHEST 2V PA LATERAL CLINICAL HISTORY: posterior right sided, similar to pneumonia, chest pain, R07.9 TECHNIQUE: 2D digital imaging was performed of the chest. Two images were obtained. PA and lateral views were obtained. COMPARISON: CR PORTABLE CHEST ONE VIEW from 10/15/2016 FINDINGS: MEDIASTINUM: Normal. HEART: Normal. Cardiac pacing wires are in good position. PULMONARY VASCULATURE: Normal. LUNGS: Clear. PLEURAL SPACE: No pleural effusion or pneumothorax. BONE:Within normal limits for the patient's age. Sternal wires are in place. OTHER FINDINGS:Normal. IMPRESSION: No acute pulmonary findings. DATA REPOSITORY: RADIATION DOSE DELIVERED:
== END 2023-04-18 11:33 ==
LOC: DI 11:13
PROVIDERS: PCP Family Medicine; Visit Provider Nurse Practitioner Family
DX: R07.9 Chest pain, unspecified (principal)
CPT/HCPCS: 71046

== ENCOUNTER → 2023-09-07 02:06 | Outpatient (CLI) | payer MEDICARE, SELFPAY ==
--- NOTE | 2023-09-07 08:23 | DI.US_ITS ---
Exam(s) US ABD PELV TRANSVAG NON-OB EXAM: US ABD PELV TRANSVAG NON-OB CLINICAL HISTORY: post menopausal [id number],ABD PAIN TECHNIQUE: Ultrasound of the abdomen, pelvis. Both abdominal and transvaginal was performed using standard protocol. COMPARISON: US US PELVIS TRANSVAGINAL from 11/03/[address] RENAL COLIC WO from 02/19/2021 FINDINGS: LIVER: Enlarged at 18.5 cm in length. Mild hepatic steatosis. GALLBLADDER: No evidence of cholelithiasis. No evidence of wall thickening. No pericholecystic fluid identified. KIDNEYS: Kidneys are symmetric in size. No evidence of renal calculi. No evidence of hydronephrosis. No renal mass or cyst identified. BILIARY SYSTEM: Common bile duct measures < 7 mm. No intrahepatic biliary ductal dilation. CRUZ'S SIGN: Negative. PANCREAS: Normal where visualized. Partially obscured by bowel gas. SPLEEN: Not enlarged. ABDOMINAL AORTA AND IVC: Visualized portions normal caliber. ASCITES: None seen. UTERUS: Position: Anteverted. Size: 8.5 x 4.5 x 5.4 cm Endometrium: Thickened for a postmenopausal patient at 8 cm. No focal abnormality identified. Myometrium: Multiple fibroids. There is fibroid near the fundus measuring 3.9 cm maximal dimension. Smaller fibroid anteriorly measuring 2.7 cm maximal dimension. Cervix: Unremarkable. OVARIES: Right: Not seen. Left: 6.0 centimeter simple cyst x 4.5 x 5.4 centimeter simple appearing cyst of the left ovary. It w as measured on the prior exam at 6.1 by 4.3 cm by 4.6 cm. CUL-DE-SAC: Free fluid: None. IMPRESSION: 1. Enlarged liver with mild hepatic steatosis. 2. Uterine fibroids. Thickened endometrial stripe. 3. Right ovary not visualized. 4. 6 centimeter maximal dimension simple cyst of the left ovary. Minimal if any change from [address] CT. DATA REPOSITORY:
== END ==
PROVIDERS: PCP Family Medicine; Visit Provider Family Medicine
DX: N93.8 Other specified abnormal uterine and vaginal bleeding (principal); K76.0 Fatty (change of) liver, not elsewhere classified; D25.9 Leiomyoma of uterus, unspecified
CPT/HCPCS: 76700; 76830; 76856

== ENCOUNTER 2023-09-13 14:16 | Outpatient (REF) | payer MEDICARE, SELFPAY ==
--- NOTE | 2023-09-13 14:00 | ENDOMET_PTH ---
PATIENT: Sonia Bolanos LOC: [facility] U#:[id number] AGE/SX: 67/F ROOM: RE09/13/[address]: Liv Huynh DO : 1955 BED: DIS: 09/13/2023 SPEC #: [id number] RECD: 09/13/23 17:42 STATUS: IRINEO REQ #: [id number] BLANCA: 09/13/23 14:[address]: Liv Huynh DEPT: Surgical Specimen RECD BY: Parisa Mosley ENTERED: 09/13/23 17:43 SP TYPE: Endomet OTHR DR: Helen Garces MD, DC Tissues: 1 - ENDOMETRIUM BX/NATETTE Procedures: GROSS AND MICRO LEVEL 4 Comments: [id number]
== END 2023-09-13 14:17 | disposition home or self-care (01) ==
LOC: LBN 14:16
PROVIDERS: PCP Family Medicine; Visit Provider Obstetrics & Gynecology
DX: N84.0 Polyp of corpus uteri (principal)
CPT/HCPCS: 88305

== ENCOUNTER → 2024-03-14 09:44 | Outpatient (BNVA) | payer MEDICARE, SELFPAY | PROVIDERS: PCP Family Medicine; Referring Provider Family Medicine; Visit Provider Psychiatry & Neurology Neurology | DX: G70.00 Myasthenia gravis without (acute) exacerbation (principal) | CPT/HCPCS: 99214 ==

== ENCOUNTER 2025-04-04 00:39 | Outpatient (CLI) | payer MEDICARE, SELFPAY ==
--- NOTE | 2025-04-04 07:45 | DI.DEXA_ITS ---
Exam(s) XR DEXA BONE DENSITY W/WO ROSALIA EXAM: XR DEXA BONE DENSITY W/WO ROSALIA CLINICAL HISTORY: SCREENING FOR OSTEOPOROSIS IN POSTMENOPAUSAL STATUS,Z78.0 TECHNIQUE: [employer] C densitometer analysis of left hip, lumbar spine and left forearm. Lat eral survey image of the thoracic and lumbar spine. COMPARISON: DX ROSALIA from 04/10/[address] RENAL COLIC WO from 02/19/2021 FINDINGS: Lateral view of the thoracic and lumbar spine shows no evidence of compression fractures. There is mild L5-S1 spondylolisthesis which appears unchanged from prior exams. Bone mineral density measurements of the lumbar spine correspond to a total T-score of 0.0, in the no rmal range. This represents a 5.2 percent decrease when compared with 2008. Bone mineral density measurements of the left hip correspond to a total T-score of 1.4. This repre sents a 2.7 percent increase from 2008. The femoral neck T-score is -1.3, in the osteopenic range.. Theleft forearm bone mineral density measurements correspond to a T-score of the distal 3rd of 0.5, in the normal range. The forearm was not analyzed in 2008.. IMPRESSION: Normal bone mineral density of the forearm and spine. Osteopenia of the hip.
== END 2025-04-04 00:59 ==
LOC: DI 00:39
PROVIDERS: PCP Family Medicine; Visit Provider Family Medicine
DX: Z78.0 Asymptomatic menopausal state (principal); Z13.820 Encounter for screening for osteoporosis; M85.89 Other specified disorders of bone density and structure, multiple sites
CPT/HCPCS: 77080

== ENCOUNTER 2025-04-10 02:37 | Outpatient (CLI) | payer MEDICARE, SELFPAY ==
--- NOTE | 2025-04-10 | DI.US_ITS ---
APPROVED REPORT EXAM: Comprehensive 2D, Doppler, and color-flow Echocardiogram Patient Location: Out-Patient Crotch Breaker: Rachel Pierre RDCS (AE) Indications: Pacemaker, Nonsustained ventricular tachycardia, Obesity Other Information Study Quality: Fair. Technically limited study due to body habitus. Conclusion Mild concentric left ventricular hypertrophy. Ejection fraction is 60 to 65%. Wall motion is normal Normal right ventricular size and function Mildly enlarged left atrium. Normal right atrial size Device lead noted in the right heart There are no structural valvular abnormalities Estimated right ventricular systolic pressure is 41 mmHg Wall motion Left Ventricle The left ventricle is normal size. The left ventricular systolic function is normal. The left ventric ular ejection fraction is within the normal range. Mild concentric left ventricular hypertrophy. Ther e is normal LV segmental wall motion. There is no ventricular septal defect visualized. LVEF is 62%. Right Ventricle The right ventricle is normal size. The right ventricular systolic function is normal. Pacemaker lead is present in the right ventricle. Atria Left atrium is mildly dilated. The right atrium size is normal. The interatrial septum is intact with no evidence for an atrial septal defect. Aortic Valve The aortic valve is normal in structure. Aortic valve is trileaflet. There is no aortic valvular sten osis. No aortic regurgitation is present. Mitral Valve The mitral valve is normal in structure. No evidence of mitral valve stenosis. Trace mitral regurgita tion. Tricuspid Valve The tricuspid valve is normal in structure. There is no tricuspid valve stenosis. Trace to mild tricu spid regurgitation. The RVSP is 40.6 mmHg. Pulmonic Valve The pulmonary valve is normal in structure. There is no pulmonic valvular stenosis. Trace pulmonic re gurgitation. Great Vessels The aortic root is normal in size. The ascending aorta is normal in size. IVC is normal in size and c ollapses >50% with inspiration. Pericardium There is no pericardial effusion. 2D Dimensions IVSD d PLAX 1.10 cm F: 0.6-1.0 Ao Root d 2.70 cm F: 2.7 - 3.3 LVPW d PLAX 1.11 cm F: 0.6 - 1.0 Ao Asc Diam d 2.87 cm F: 2.3 - 3.1 LVID d PLAX 4.21 cm F: 3.8 - 5.2 LVDs 2.81 cm F: 2.2 - 3.5 LV EF Teichholz 62.3 % FS 33.26 % LV EDV (Teich) 79.1 mL LV ESV (Teich) 29.8 mL M-Mode TAPSE 2.63 cm (M/F) >1.7 Auto EF LV EDV A4C 89.9 mL LV EDV A2C 93.6 mL LV EDV BP 93.1 mL LV ESV A4C 33.7 mL LV ESV A2C 37.8 mL LV ESV BP 35.8 mL LVEF(%) A4C 62.5 % LVEF(%) A2C 59.6 % LVEF(%) BP 61.5 % LV SV A4C 56.1 ml LV SV A2C 55.8 ml LV SV BP 57.3 ml LV CO A4C 3.6 L/min LV CO A2C 3.6 L/min LV CO BP 3.6 L/min HR A4C 64.06 BPM HR A2C 64.06 BPM LV EDV Index (BP) LA Volume LA Length A4C 4.8 cm LA Length A2C 4.7 cm LA Area A4C s 15.72 cm2 LA Area A2C s 14.38 cm2 LA Vol A4C A-L 43.76 mL LA Vol A2C A-L 37.23 mL LA Vol Biplane A-L 40.7 mL LA Vol/BSA A4C A-L LA Vol/BSA A2C A-L LA Vol/BSA BP A-L 23.5 mL/m2 LA Vol A4C MOD 41.9 mL LA Vol A2C MOD 34.9 mL LA Vol BP MOD 38.5 mL RA Volume RA Area A4C 10.8 cm2 RA ESV A4C (A-L) 23.5mL RA Vol/BSA A4C A-L RA Length A4C 4.2 cm RA ESV A4C (MOD) 22.5mL LV Diastology MV E' medial 0.092 (>0.07 m/s) MV E Vmax 0.85 (0.4-1.3 m/s) MV E/E' MED 9.19 (<14) MV A Vmax 0.65 (0.4-1.3 m/s) MV E' lateral 0.107 (>0.1 m/s) E/A Ratio 1.3 MV E/E' LAT 7.89 (<14) MV E' Average 0.100 m/s MV E/E'(average) 8.49 Aortic Valve AoV Vmax 1.45 m/s LVOT Vmax 1.17 m/s AoV Peak Grad 8.4 mmHg LVOT Peak Grad 5.4 mmHg AoV Area (Vmax) 2.30 cm2 LVOT VTI 0.287 m AoV VTI 0.362 m LVOT Mean Grad 3.0 mmHg AoV Mean Norris. 1.01 m/s LVOT SV 81.97 mL AoV Mean Grad 4.6 mmHg LVOT Diam s 1.90 cm AoV Area (VTI) 2.27 cm2 AV Regurg Peak Gr. 8.39 mmHg Velocity Ratio 0.81 Mitral Valve MV DT 141 (160-240 msec) MV Vmax TIPS 0.87 m/s MV Mean Grad 1.1 (<2mmHg) MV VTI 0.310 m Pulmonary Valve PV Vmax 0.94 (0.5-1.5 m/s) RVOT Vmax 0.77 m/s PV Peak Grad 3.6 mmHg RVOT Peak Gr. 2.4 mmHg PV Mean Norris 0.72 m/s RVOT VTI 0.188 m PV Mean Grad 2.3 mmHg RVOT Mean Gr. 1.3 mmHg Tricuspid Valve RA Pressure 3.00 mmHg TR Vmax 3.07 m/s TV S' 0.15 m/s TR Peak Grad 37.6 mmHg RVSP (TR) 40.6 mmHg
== END 2025-04-10 02:57 ==
LOC: DI 02:37
PROVIDERS: PCP Family Medicine; Visit Provider Internal Medicine Cardiovascular Disease
DX: I47.29 Other ventricular tachycardia (principal); Z95.5 Presence of coronary angioplasty implant and graft; E66.9 Obesity, unspecified; Z95.0 Presence of cardiac pacemaker; I51.7 Cardiomegaly
CPT/HCPCS: 93306

== ENCOUNTER 2025-04-24 01:09 | Outpatient (CLI) | payer MEDICARE, SELFPAY ==
--- NOTE | 2025-04-24 08:46 | DI.MAMMO_ITS ---
Exam(s) MAMMO SCREENING EXAM: MAMMO SCREENING CLINICAL HISTORY: screening, Z12.39. TECHNIQUE: Bilateral full field digital CC and MLO mammographic images were obtained with 3D tomosynthesis and utilizing computer aided detection (CAD). COMPARISON: Prior mammograms were reviewed. FINDINGS: Small benign-appearing nodule in the lateral aspect of the left breast is unchanged from 2020. There are no new spiculated masses nor new malignant appearing microcalcification groups. There is no significant architectural distortion nor skin thickening-retraction. IMPRESSION: Stable benign findings. No radiographic evidence of malignancy. BI-RADS Category 2 - Benign Findings Breast Density - Category B - There are scattered areas of fibroglandular density. Breast density Category C or D implies that the patient has dense breast tissue. Dense breast tissue can make it harder to find cancer on a mammogram. Dense breast tissue is also associated with an increased risk of breast cancer. This information about the result of the mammogram report was provided to the patient to raise their awareness. Use this report when you speak with the patient about their risks for breast cancer, which includes their family history. At that time, you may recommend additional screening tests (Ultrasound or MRI) as these tests may add significant information. A negative radiographic report should not delay biopsy if a dominant or clinically suspicious mass is present. Up to ten percent of cancers are not identified on mammography. A negative report may reinforce clinical impression. Adenosis and dense breasts may obscure an underlying neoplasm. False positive reports average 6 to 10%. Patient will receive a letter notifying them of these results.
== END 2025-04-24 01:29 ==
LOC: DI 01:09
PROVIDERS: PCP Family Medicine; Visit Provider Family Medicine
DX: Z12.31 Encounter for screening mammogram for malignant neoplasm of breast (principal); R92.323 Mammographic fibroglandular density, bilateral breasts; D24.2 Benign neoplasm of left breast
CPT/HCPCS: 77063; 77067